=== PATIENT | male | born 1985 | race Two or more races ===

== ENCOUNTER 2020-08-07 16:07 | Outpatient (CLI) | payer BC ==
--- NOTE | 2020-08-07 16:34 | XRAY Report ---
PROCEDURE: Knee 3 View LT INDICATIONS: PAIN IN LT KNEE TECHNIQUE: 3 views of the left knee(s) were acquired. COMPARISON: None. FINDINGS: Bones: No fractures or dislocations. No suspicious bony lesions. Mild tricompartmental knee joint degeneration secondary to osteoarthritis. Soft tissues: No joint effusion. No suspicious soft tissue calcifications. IMPRESSION: Mild osteoarthritis. Reviewed by: Marcio Dhillon MD on 08/07/2020 4:33 PM PDT Approved by: Marcio Dhillon MD on 08/07/2020 4:33 PM PDT Station ID: [id number]
== END 2020-08-07 16:08 | disposition home or self-care (01) ==
LOC: DI 16:07
PROVIDERS: ATTEND Physician Assistant
DX: M17.12 Unilateral primary osteoarthritis, left knee (principal)